=== PATIENT | female | born 1975 | race Caucasian/White ===

== ENCOUNTER 2021-01-18 14:45 | Outpatient (CLI) | payer MEDICAID | END 2021-01-18 23:59 | disposition home or self-care (01) | LOC: CARD DIAG 14:45 | PROVIDERS: ATTEND Internal Medicine Cardiovascular Disease | DX: I08.0 Rheumatic disorders of both mitral and aortic valves (principal) | CPT/HCPCS: 93306 ==

== ENCOUNTER 2021-03-24 06:26 | Day surgery (SDC) | payer MEDICAID ==
[~2021-03-24] VITALS: Ht 170.2 cm; Wt 147.7 kg
[2021-03-24 06:36] VITALS: BP 180/110
[2021-03-24] MEDS ORDERED: METF750T46 PO (07:11)
[2021-03-24] MEDS ORDERED: CETI10TA18 PO (07:14)
[2021-03-24] MEDS ORDERED: RISP0.5T74 PO (07:14)
[2021-03-24] MEDS ORDERED: RISP0.5T65 PO (07:14)
[2021-03-24] MEDS ORDERED: NAPR-56 PO (07:16)
[2021-03-24] MEDS ORDERED: SIMV20TA PO (07:16)
[2021-03-24] MEDS ORDERED: TRAM50TA2 PO (07:17)
[2021-03-24] MEDS ORDERED: BACL20TA PO (07:17)
[2021-03-24] MEDS ORDERED: LOSA100T57 PO (07:18)
[2021-03-24] MEDS ORDERED: POTA10TA19 PO (07:19)
[2021-03-24] MEDS ORDERED: TORS20TA3 PO (07:19)
[2021-03-24] MEDS ORDERED: METO100T14 PO (07:20)
[2021-03-24] MEDS ORDERED: ALOG12.52 (07:21)
[2021-03-24] MEDS ORDERED: MULT1CAP66 PO (07:22)
[2021-03-24] MEDS ORDERED: LORA10TA7 PO (07:22)
[2021-03-24] MEDS ORDERED: CHOL500050 PO (07:23)
[2021-03-24] MEDS ORDERED: DOCU-148 PO (07:24)
[2021-03-24] MEDS ORDERED: VITA-268 PO (07:24)
[2021-03-24] MEDS ORDERED: FERR-119 PO (07:25)
[2021-03-24] MEDS ORDERED: fentaNYL/PF 50MCG/1 ML 2ML syringe ONE (07:28)
[2021-03-24] MEDS ORDERED: LIDOcaine Viscous 15ml cup ONE (07:29)
[2021-03-24] MEDS ORDERED: MIDAZolam 1 MG/ML 5ML VIAL ONE (07:29)
[2021-03-24 07:48] VITALS: BP 139/99
[2021-03-24 07:58] VITALS: BP 147/98
[2021-03-24 08:08] VITALS: BP 137/82
[2021-03-24 08:18] VITALS: BP 136/99
== END 2021-03-24 08:30 | disposition home or self-care (01) ==
LOC: GI LAB 06:26
PROVIDERS: ATTEND Specialist
DX: Z01.818 Encounter for other preprocedural examination (principal); K29.50 Unspecified chronic gastritis without bleeding; E66.01 Morbid (severe) obesity due to excess calories; Z68.43 Body mass index [BMI] 50.0-59.9, adult; K25.9 Gastric ulcer, unspecified as acute or chronic, without hemorrhage or perforation; K44.9 Diaphragmatic hernia without obstruction or gangrene; I10 Essential (primary) hypertension; E11.9 Type 2 diabetes mellitus without complications; Z86.16 Personal history of COVID-19; Z88.8 Allergy status to other drugs, medicaments and biological substances; Z88.2 Allergy status to sulfonamides; Z79.899 Other long term (current) drug therapy; Z79.84 Long term (current) use of oral hypoglycemic drugs
CPT/HCPCS: 43239; J2250; J3010; J7040; 99152; A4620